=== PATIENT | male | born 1985 | race African-American/Black ===

== ENCOUNTER 2016-05-12 14:08 | Emergency (ER) | payer OTHER ==
[2016-05-12 15:49] LABS: MEAN CORPUSCULAR HGB CONC 34.3 g/dl (32.0-36.5); MEAN CORPUSCULAR VOLUME 87.7 fl (80.0-96.0); RED CELL DISTRIBUTION WIDTH 12.7 % (11.5-14.5); WHITE BLOOD COUNT 5.7 K/mm3 (4.0-10.0)
[2016-05-12 15:54] LABS: AMPHETAMINES LEVEL URINE NEGATIVE (NEGATIVE); BENZODIAZEPINES URINE NEGATIVE (NEGATIVE); COCAINE METABOLITE URINE NEGATIVE (NEGATIVE); METHADONE URINE NEGATIVE (NEGATIVE); OPIATES URINE NEGATIVE (NEGATIVE); TRICYCLIC ANTIDEPRESS URINE NEGATIVE (NEGATIVE)
[2016-05-12 15:55] LABS: CONTROL LINE INT CTR LINE PRESENT
[2016-05-12 16:20] LABS: ALBUMIN 4.1 GM/DL (3.2-5.2); ALBUMIN/GLOBULIN RATIO 1.05 (1.00-1.93); ALKALINE PHOSPHATASE 107 U/L (45-117); ALT/SGPT 56 U/L (12-78); ANION GAP 9 MEQ/L (8-16); AST/SGOT 37 U/L (15-37); BILIRUBIN,DIRECT 0.2 MG/DL (0.0-0.2); BILIRUBIN,TOTAL 0.6 MG/DL (0.2-1.0); BLOOD UREA NITROGEN 12 MG/DL (7-18); CALCIUM LEVEL 9.3 MG/DL (8.5-10.1); CARBON DIOXIDE LEVEL 29 MEQ/L (21-32); CHLORIDE LEVEL 103 MEQ/L (98-107); CREATININE FOR GFR 0.96 MG/DL (0.70-1.30); GLOMERULAR FILTRATION RATE > 60.0 (>60); GLUCOSE, FASTING 76 MG/DL (70-105); POTASSIUM SERUM 3.9 MEQ/L (3.5-5.1); SODIUM LEVEL 141 MEQ/L (136-145)
--- NOTE | 2016-05-12 17:05 | EDDOCDS ---
Physician Documentation [facility], [place] Name: Sussy Rios Age: 31 yrs Sex: Male : 1985 Arrival Date: 05/12/2016 Time: 14:08 Bed [facility] Private MD: Disposition: 05/12/16 16:27 Discharged to Home/Self Care. Impression: Adjustment disorder with depressed mood. - Condition is Stable. - Prescriptions for trazodone 50 mg Oral tablet - take 1 tablet by ORAL route once daily; 3 tablet. - Medication Reconciliation, Local Pharmacy Hours form. - Follow up: Veronika Mora [facility]; When: Call to arrange an appointment; Reason: Recheck today's complaints. - Problem is new. - Symptoms have improved. Historical: - Allergies: no known allergies; - Home Meds: 1. was put on flexeril and 2 other back pain meds yestrerday but hadnt taken any yet - PMHx: none; - PSHx: mandible; - Social history: Smoking status: Patient states was never smoker of tobacco. No barriers to communication noted, The patient speaks fluent Estonian. - Family history: Not pertinent. - : The pt / caregiver states he / she is not on anticoagulants. Home medication list is obtained from the patient. - Exposure Risk Screening:: None identified. Vital Signs: 05/12 14:23 Weight 129.27 kg / 284.99 lbs; Height 6 ft. 2 in. (187.96 cm); mk4 15:08 BP 159 / 96; Pulse 68; Resp 18; Temp 98(T); Pulse Ox 97% on R/A; mk4 17:01 BP 144 / 92; Pulse 74; Resp 18; Temp 98; Pulse Ox 100% on R/A; mk4 14:23 Body Mass Index 36.59 (129.27 kg, 187.96 cm) mk4 MDM: 14:46 Consult PFS/PSA/Motion Picture Photographer ordered. fg 14:46 Consult PFS/PSA/Motion Picture Photographer: Patient's case requires discussion with on-call fg Psychiatrist ordered. 14:46 PSA/PFS to call Nursing Scrap Worker, to enter patient data on [place] Safe Act if patient fg involuntarily admitted or transferred for SI or HI ordered. 14:46 Confirm accurate psychiatric medication list and times of last dosage ordered. fg 14:46 Detain Pt Until Medically/PFS Cleared ordered. fg 14:47 Acetaminophen Level Ordered. EDMS 14:47 Basic Metabolic Profile Ordered. EDMS 14:47 Complete Blood Count Ordered. EDMS 14:47 Drug Eval Toxicology ED Only Ordered. EDMS 14:47 Ethyl Alcohol (ethanol) Ordered. EDMS 14:47 Liver Profile Ordered. EDMS 14:47 Salicylate Level Ordered. EDMS 14:47 Thyroid Stimulating Hormone Ordered. EDMS 15:24 Financial registration complete. jp5 15:36 Consult PFS/PSA/Motion Picture Photographer complete. ml4 15:36 Consult PFS/PSA/Motion Picture Photographer: Patient's case requires discussion with on-call ml4 Psychiatrist complete. 15:36 PSA/PFS to call Nursing Scrap Worker, to enter patient data [place] Safe [place] if patient ml4 involuntarily admitted or transferred for SI or HI complete. 16:09 [facility] Payment Agreement was scanned into [employer] and attached to record. jp5 16:54 [facility] Legal paperwork was scanned into [employer] and attached to record. ml4 Signatures: Dispatcher [employer] EDMS Andreea Hsieh, PSA PSA ml4 Angelina Durant, RN RN Sravani Mayer jp5 Angeline Clark MD MD fg The chart was reviewed and I authenticate all verbal orders and agree with the evaluation and treatment provided.Attachments: 16:09 [facility] Payment Agreement jp5 MTDD
--- NOTE | 2016-05-12 17:06 | EDDOCDS ---
Nurse's Notes [facility] Name: Sussy Rios Age: 31 yrs Sex: Male : 1985 Arrival Date: 05/12/2016 Time: 14:08 Bed [facility] Private MD: Diagnosis: Adjustment disorder with depressed mood Presentation: 05/12 14:21 Presenting complaint: Patient states: has been having suicidal ideations for awhile mk4 now, today went to [facility] who sent him here. Mental Health Triage Level: Level 2: The patient displays active suicidal ideations. Adult Sepsis Screening: The patient does not have new or worsening altered mentation. Patient's respiratory rate is less than 22. Systolic blood pressure is greater than 100. Patient has a qSOFA score of 0- Negative Sepsis Screen. Suicide/Homicide risk assessment- The patient admits to and/or has been reported to be having suicidal ideations. The patient reports that he/she has not been admitted to an inpatient mental health facility in the last 30 days. The patient reports that he/she does not have a recent or current history of substance abuse. The patient reports that he/she has no prior history of suicide attempt and/or organized plan. The patient reports that he/she has not experienced a significant life altering event in the last 30 days. The patient reports that he/she has adequate social support. The patient reports he/she has no significant chronic medical condition(s). 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 Transition of care: patient was not received from another setting of care. 14:21 Acuity: HOLLY Level 3 [facility] 14:21 Method Of Arrival: Ambulance 4 Triage Assessment: 14:23 General: Appears in no apparent distress. Pain: Denies pain. HIV screening NA for this 4 visit Offered previously. Historical: - Allergies: no known allergies; - Home Meds: 1. was put on flexeril and 2 other back pain meds yestrerday but hadnt taken any yet - PMHx: none; - PSHx: mandible; - Social history: Smoking status: Patient states was never smoker of tobacco. No barriers to communication noted, The patient speaks fluent Spanish. - Family history: Not pertinent. - : The pt / caregiver states he / she is not on anticoagulants. Home medication list is obtained from the patient. - Exposure Risk Screening:: None identified. Screenin:04 Screening information is obtained from the patient. Fall risk: No risks identified. mk4 Assistance ADL's: requires no assistance with activities of daily living. Abuse/DV Screen: The patient / caregiver reports he/she is: not in a situation that causes fear, pain or injury. Nutritional screening: No deficits noted. Advance Directives: Currently, there is no health care proxy. There is There is no living will. There is no Power of Visitor Services Information Assistant. Advance directive information has not previously been placed in an [facility] medical record. home support is adequate. Assessment: 14:21 General: Appears in no apparent distress. mk4 16:57 General: Appears in no apparent distress. mk4 16:59 General: Behavior is cooperative. Neurological: Level of Consciousness is awake, alert, 4 Oriented to person, place, time. Respiratory: Airway is patent. 17:01 Derm: Skin is intact, is healthy with good turgor, Skin is pink, warm & dry. 4 Mental Health Eval: 16:40 Mental health consult is initiated at 16:30. 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 [facility] Behavioral Health: The patient is not an established patient of [facility] Behavioral Health. Referral Information: Evaluation referral is generated by [facility] . The patient was referred for evaluation because pt initially presented to [facility] to request medication . Vital Signs: 14:23 Weight 129.27 kg; Height 6 ft. 2 in. (187.96 cm); mk4 15:08 BP 159 / 96; Pulse 68; Resp 18; Temp 98(T); Pulse Ox 97% on R/A; mk4 17:01 BP 144 / 92; Pulse 74; Resp 18; Temp 98; Pulse Ox 100% on R/A; mk4 14:23 Body Mass Index 36.59 (129.27 kg, 187.96 cm) 4 Vitals: 14:23 Log In Time N/A - ambulance arrival. 4 ED Course: 14:11 Patient visited by Emily Chambers. mm15 14:11 Patient moved to Waiting mm15 14:21 Patient moved to [address] 14:22 Triage Initiated 4 14:23 Patient visited by Gene Araujo Security Rupali. pjf 14:26 Pt greeted and oriented to ED. Patient advised of names of staff involved in care, pjf location of call [place], wait times and NPO status. Accompanied by fd ems, Patient has correct armband on for positive identification. Placed in psych safe attire. Bed in low position. Call light in reach. Side rails up X 1. Security observing. Property removed, secured in belongings bag- Placed in locker #1. Door closed. Noise minimized. Visitors limited. Report received from rn - psych. triage level #2, +si, cooperative \T\ this time. The patient / caregiver is instructed regarding the plan of care and ED course. Psych Safety Check: Location: Psych Room. 14:37 Patient visited by Gene Araujo Security Aide. pjf 14:46 Angeline Clark MD is Attending Physician. fg 14:46 Patient visited by Angeline Clark MD. fg 15:33 Patient visited by Ortiz Berkowitz PCA. jlf 15:33 Acetaminophen Level Sent. jlf 15:33 Basic Metabolic Profile Sent. jlf 15:33 Complete Blood Count Sent. jlf 15:33 Drug Eval Toxicology ED Only Sent. jlf 15:33 Ethyl Alcohol (ethanol) Sent. jlf 15:33 Liver Profile Sent. jlf 15:33 Salicylate Level Sent. jlf 15:33 Thyroid Stimulating Hormone Sent. jlf 15:40 Patient visited by Angelina Durant RN. mk4 15:56 Patient visited by Gene Araujo Security Aide. pjf 16:02 Patient visited by Andreea Hsieh PSA. ml4 16:09 [facility] Payment Agreement was scanned into [email or web address] and attached to record. jp5 16:26 Veronika Mora [facility] is Referral Physician. fg 16:27 Patient visited by Gene Araujo Security Aide. pjf 16:54 E Legal paperwork was scanned into [email or web address] and attached to record. ml4 17:04 No IV's were initiated during this patient's visit. No procedures done that require mk4 assistance. Attachments: 16:54 E Legal paperwork ml4 Order Results: Lab Order: Acetaminophen Level; SPEC'M 05/12/16 15:11 Test: ACETAMINOPHEN LEVEL; Value: < 2.0; Range: 10.0-30.0; Abnormal: Below low normal; Units: UG/ML; Status: F Lab Order: Basic Metabolic Profile; SPEC'M 05/12/16 15:11 Test: GLUCOSE, FASTING; Value: 76; Range: 70-105; Units: MG/DL; Status: F Test: BLOOD UREA NITROGEN; Value: 12; Range: 7-18; Units: MG/DL; Status: F Test: CREATININE FOR GFR; Value: 0.96; Range: 0.70-1.30; Units: MG/DL; Status: F Test: GLOMERULAR FILTRATION RATE; Value: > 60.0; Range: >60; Status: F Test: SODIUM LEVEL; Value: 141; Range: 136-145; Units: MEQ/L; Status: F Test: POTASSIUM SERUM; Value: 3.9; Range: 3.5-5.1; Units: MEQ/L; Status: F Test: CHLORIDE LEVEL; Value: 103; Range: 98-107; Units: MEQ/L; Status: F Test: CARBON DIOXIDE LEVEL; Value: 29; Range: 21-32; Units: MEQ/L; Status: F Test: ANION GAP; Value: 9; Range: 8-16; Units: MEQ/L; Status: F Test: CALCIUM LEVEL; Value: 9.3; Range: 8.5-10.1; Units: MG/DL; Status: F Test Note: ; Units are mL/min/1.73 m2 Chronic Kidney Disease Staging per NKF: Stage I & II GFR >=60 Normal to Mildly Decreased Stage III GFR 30-59 Moderately Decreased Stage IV GFR 15-29 Severely Decreased Stage V GFR <15 Very Little GFR Left ESRD GFR <15 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 Lab Order: Complete Blood Count; SPEC'M 05/12/16 15:11 Test: WHITE BLOOD COUNT; Value: 5.7; Range: 4.0-10.0; Units: K/mm3; Status: F Test: RED BLOOD COUNT; Value: 5.03; Range: 4.30-6.10; Units: M/mm3; Status: F Test: HEMOGLOBIN; Value: 15.1; Range: 14.0-18.0; Units: g/dl; Status: F Test: HEMATOCRIT; Value: 44.1; Range: 42.0-52.0; Units: %; Status: F Test: MEAN CORPUSCULAR VOLUME; Value: 87.7; Range: 80.0-96.0; Units: fl; Status: F Test: MEAN CORPUSCULAR HEMOGLOBIN; Value: 30.0; Range: 27.0-33.0; Units: pg; Status: F Test: MEAN CORPUSCULAR HGB CONC; Value: 34.3; Range: 32.0-36.5; Units: g/dl; Status: F Test: RED CELL DISTRIBUTION WIDTH; Value: 12.7; Range: 11.5-14.5; Units: %; Status: F Test: PLATELET COUNT, AUTOMATED; Value: 303; Range: 150-450; Units: k/mm3; Status: F Lab Order: Drug Eval Toxicology ED Only; SPEC'M 05/12/16 15:12 Test: AMPHETAMINES LEVEL URINE; Value: NEGATIVE; Range: NEGATIVE; Status: F Test: BARBITURATES URINE; Value: NEGATIVE; Range: NEGATIVE; Status: F Test: BENZODIAZEPINES URINE; Value: NEGATIVE; Range: NEGATIVE; Status: F Test: CANNABINOIDS URINE; Value: NEGATIVE; Range: NEGATIVE; Status: F Test: COCAINE METABOLITE URINE; Value: NEGATIVE; Range: NEGATIVE; Status: F Test: METHADONE URINE; Value: NEGATIVE; Range: NEGATIVE; Status: F Test: OPIATES URINE; Value: NEGATIVE; Range: NEGATIVE; Status: F Test: TRICYCLIC ANTIDEPRESS URINE; Value: NEGATIVE; Range: NEGATIVE; Status: F Test Note: ; ALL PRESUMPTIVE POSITIVE FINDINGS ARE UNCONFIRMED NORMAL VALUES THRESHOLD IN NG/ML AMPHETAMINES 1000 METHAMPHETAMINES 1000 BARBITURATES 300 BENZODIAZEPINES 300 CANNABINOIDS (THC) 50 COCAINE METABOLITE 300 METHADONE 300 OPIATES 300 PHENCYCLIDINE 25 TRICYCLIC ANTIDEPRESSANTS 1000 RESULTS ARE FOR MEDICAL PURPOSES ONLY. ALL URINE SPECIMENS WILL BE SAVED FOR 3 DAYS. IF CONFIRMATION OF A PRESUMPTIVE POSTIVE SCREEN RESULT IS DESIRED, CALL CHEMISTRY ([phone]) AND REQUEST URINE TO BE SENT TO REFERENCE LAB. FOR A LIST OF CLOSELY RELATED COMPOUNDS PLEASE CALL THE LAB. Lab Order: Ethyl Alcohol (ethanol); SPEC'M 05/12/16 15:11 Test: ETHYL ALCOHOL (ETHANOL); Value: < 0.003; Range: 0.000-0.010; Units: %; Status: F Lab Order: Liver Profile; SPEC'M 05/12/16 15:11 Test: AST/SGOT; Value: 37; Range: 15-37; Units: U/L; Status: F Test: ALT/SGPT; Value: 56; Range: 12-78; Units: U/L; Status: F Test: ALKALINE PHOSPHATASE; Value: 107; Range: 45-117; Units: U/L; Status: F Test: BILIRUBIN,TOTAL; Value: 0.6; Range: 0.2-1.0; Units: MG/DL; Status: F Test: BILIRUBIN,DIRECT; Value: 0.2; Range: 0.0-0.2; Units: MG/DL; Status: F Test: TOTAL PROTEIN; Value: 8.0; Range: 6.4-8.2; Units: GM/DL; Status: F Test: ALBUMIN; Value: 4.1; Range: 3.2-5.2; Units: GM/DL; Status: F Test: ALBUMIN/GLOBULIN RATIO; Value: 1.05; Range: 1.00-1.93; Status: F Lab Order: Salicylate Level; SPEC'M 05/12/16 15:11 Test: SALICYLATE LEVEL; Value: < 1.7; Range: 5.0-30.0; Abnormal: Below low normal; Units: MG/DL; Status: F Lab Order: Thyroid Stimulating Hormone; SPEC'M 05/12/16 15:11 Test: THYROID STIMULATING HORMONE; Value: 2.600; Range: 0.358-3.740; Units: uIU/ML; Status: F Outcome: 16:27 Discharge ordered by Provider. fg 17:03 Discharge Assessment: Patient awake, alert and oriented x 3. No cognitive and/or mk4 functional deficits noted. Patient verbalized understanding of disposition instructions. Patient awake and alert. Discharge Assessment: patient administered narcotics - no. The following High Risk Discharge criteria are identified: None. Condition: good Condition: stable. Discharge instructions given to patient, Instructed on discharge instructions, follow up and referral plans. Prescriptions given X 1, Work note provided to patient. No special radiology studies were completed. 17:04 Patient left the ED. mk4 Signatures: Gene Araujo, Andreea El, PSA PSA ml4 Emily Chambers mm15 Angelina Durant RN RN mk4 Ortiz Berkowitz, [employer] Sravani Michaels jp5 Angeline Clark MD MD fg Corrections: (The following items were deleted from the chart) 16:59 16:40 Referral Information: Evaluation referral is generated by [facility] . The ml4 patient was referred for evaluation because pt initially presented to [facility] to request medication . ml4 17:01 14:21 General: Appears in no apparent distress, mk4 mk4 MTDD
--- NOTE | 2016-05-14 18:06 | EDDOCDS ---
Nurse's Notes [facility] Name: Sussy Rios Age: 31 yrs Sex: Male : 1985 Arrival Date: 05/12/2016 Time: 14:08 Bed [facility] Private MD: Diagnosis: Adjustment disorder with depressed mood Presentation: 05/12 14:21 Presenting complaint: Patient states: has been having suicidal ideations for awhile mk4 now, today went to [facility] who sent him here. Mental Health Triage Level: Level 2: The patient displays active suicidal ideations. Adult Sepsis Screening: The patient does not have new or worsening altered mentation. Patient's respiratory rate is less than 22. Systolic blood pressure is greater than 100. Patient has a qSOFA score of 0- Negative Sepsis Screen. Suicide/Homicide risk assessment- The patient admits to and/or has been reported to be having suicidal ideations. The patient reports that he/she has not been admitted to an inpatient mental health facility in the last 30 days. The patient reports that he/she does not have a recent or current history of substance abuse. The patient reports that he/she has no prior history of suicide attempt and/or organized plan. The patient reports that he/she has not experienced a significant life altering event in the last 30 days. The patient reports that he/she has adequate social support. The patient reports he/she has no significant chronic medical condition(s). 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 Transition of care: patient was not received from another setting of care. 14:21 Acuity: HOLLY Level 3 [facility] 14:21 Method Of Arrival: Ambulance 4 Triage Assessment: 14:23 General: Appears in no apparent distress. Pain: Denies pain. HIV screening NA for this 4 visit Offered previously. Historical: - Allergies: no known allergies; - Home Meds: 1. was put on flexeril and 2 other back pain meds yestrerday but hadnt taken any yet - PMHx: none; - PSHx: mandible; - Social history: Smoking status: Patient states was never smoker of tobacco. No barriers to communication noted, The patient speaks fluent Urdu. - Family history: Not pertinent. - : The pt / caregiver states he / she is not on anticoagulants. Home medication list is obtained from the patient. - Exposure Risk Screening:: None identified. Screenin:04 Screening information is obtained from the patient. Fall risk: No risks identified. mk4 Assistance ADL's: requires no assistance with activities of daily living. Abuse/DV Screen: The patient / caregiver reports he/she is: not in a situation that causes fear, pain or injury. Nutritional screening: No deficits noted. Advance Directives: Currently, there is no health care proxy. There is There is no living will. There is no Power of Mine Captain. Advance directive information has not previously been placed in an [facility] medical record. home support is adequate. Assessment: 14:21 General: Appears in no apparent distress. mk4 16:57 General: Appears in no apparent distress. mk4 16:59 General: Behavior is cooperative. Neurological: Level of Consciousness is awake, alert, mk4 Oriented to person, place, time. Respiratory: Airway is patent. 17:01 Derm: Skin is intact, is healthy with good turgor, Skin is pink, warm & dry. 4 Mental Health Eval: 16:40 Mental health consult is initiated at 16:30. 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 [facility] Behavioral Health: The patient is not an established patient of [facility] Behavioral Health. Referral Information: Evaluation referral is generated by [facility] . The patient was referred for evaluation because pt initially presented to [facility] to request medication . Referral Information: Evaluation referral is generated by [facility] . The patient was referred for evaluation because pt initially presented to [facility] to request medication for sleep, however was sent to [facility] to a medical provider for a prescription, he then was asked about suicidality and pt replied yes with no plan. . 17:27 Subjective: The patients chief complaint is pt states, "I was never suicidal, just ml4 wanted medication for sleep." Pt admits feeling overwhelmed with anxiety due to being at a new duty station. States he moved to [place] with his spouse and 4 children Mar, 2016 and is not familiar with his INGRID or unit. He reports feeling of not being able to "control things" which triggers his anxiety. Pt reports a hx of PTSD, however has never officially diagnosed. Admits having 2 combat related deployments, last tour was to [place] in 2009. Pt continues to deny SI and HI, able to CFS. Spoke to (Stephen, ) who does not have any safety concerns and states he just requires medication for sleep. is also requesting pt to be discharged. . Delusions are denied. Patient's mood is anxious, Hallucinations are denied. 17:44 Mental Health history: post-traumatic stress disorder, Mental Health Admissions: None. ml4 Current Outpatient Mental Health Services: [facility](Name Unknown) . Current living environment is Family / Home Support: adequate support The patient currently lives with his / her children. with his / her spouse, . The patient is . Patient presents to Emergency Department with the following symptoms within the past 2 weeks: anxiety, depressed mood, vague SI no plan, but denies SI currently . poor concentration. 17:54 Substance abuse: Pt denies. Mental status exam: Patients appearance is appropriate, ml4 Patient's behavior is cooperative, Speech is normal. Affect is appropriate. Mood is anxious. Hallucinations are denied. Appetite is normal. Memory is good. Energy level is normal. Content of thought is normal. Thought process is intact. Cognitive level is oriented to person, place, time and situation Patient's insight is good. Judgement is good. Rapport with interviewer is Suicidal Ideation is denied. Homicidal ideation is denied. Disposition: Medically cleared for disposition by Angeline Clark MD Psychiatric Consult is performed by phone with Dr Richard Garcia. [facility] Admission Criteria: Not Applicable. [place] applicable because the patient does not display any suicidal or homicidal ideations and does not pose a risk to self or others. DSM-V Differential Diagnosis: Generalized Anxiety Disorder (F41.1). Narrative: Pt is able to be d/c from [facility]. He adamantly denies SI and HI, able to CFS. Referrals for oupt services was given at beside and directed to follow up with [facility] in the am for further tx. Vital Signs: 14:23 Weight 129.27 kg; Height 6 ft. 2 in. (187.96 cm); mk4 15:08 BP 159 / 96; Pulse 68; Resp 18; Temp 98(T); Pulse Ox 97% on R/A; mk4 17:01 BP 144 / 92; Pulse 74; Resp 18; Temp 98; Pulse Ox 100% on R/A; mk4 14:23 Body Mass Index 36.59 (129.27 kg, 187.96 cm) 4 Vitals: 14:23 Log In Time N/A - ambulance arrival. 4 ED Course: 14:11 Patient visited by Emily Chambers. mm15 14:11 Patient moved to Waiting mm15 14:21 Patient moved to [facility] mk4 14:22 Triage Initiated mk4 14:23 Patient visited by Gene Araujo Security Aide. pjf 14:26 Pt greeted and oriented to ED. Patient advised of names of staff involved in care, pjf location of call [place], wait times and NPO status. Accompanied by fd ems, Patient has correct armband on for positive identification. Placed in psych safe attire. Bed in low position. Call light in reach. Side rails up X 1. Security observing. Property removed, secured in belongings bag- Placed in locker #1. Door closed. Noise minimized. Visitors limited. Report received from rn - psych. triage level #2, +si, cooperative \\T\\ this time. The patient / caregiver is instructed regarding the plan of care and ED course. Psych Safety Check: Location: Psych Room. 14:37 Patient visited by Gene Araujo Security Aide. pjf 14:46 Angeline Clark MD is Attending Physician. fg 14:46 Patient visited by Angeline Clark MD. fg 15:33 Patient visited by Ortiz Berkowitz PCA. jlf 15:33 Acetaminophen Level Sent. jlf 15:33 Basic Metabolic Profile Sent. jlf 15:33 Complete Blood Count Sent. jlf 15:33 Drug Eval Toxicology ED Only Sent. jlf 15:33 Ethyl Alcohol (ethanol) Sent. jlf 15:33 Liver Profile Sent. jlf 15:33 Salicylate Level Sent. jlf 15:33 Thyroid Stimulating Hormone Sent. jlf 15:40 Patient visited by Angelina Durant RN. mk4 15:56 Patient visited by Gene Araujo Security Aide. pjf 16:02 Patient visited by Andreea Hsieh PSA. ml4 16:09 [facility] Payment Agreement was scanned into [employer] and attached to record. jp5 16:26 Veronika Mora [facility] is Referral Physician. fg 16:27 Patient visited by Gene Araujo Security Aide. pjf 16:54 [facility] Legal paperwork was scanned into [employer] and attached to record. ml4 17:04 No IV's were initiated during this patient's visit. No procedures done that require mk4 assistance. 17:17 Patient name changed from Sussy\\S\\\\S\\Estridge\\S\\ to Sussy\\S\\ \\S\\Estridge. EDMS 05/13 07:14 T-Sheet-- Draft Copy was scanned into [employer] and attached to record. gb 11:50 PCR was scanned into [employer] and attached to record. gb Attachments: 16:54 [facility] Legal paperwork ml4 Order Results: Lab Order: Acetaminophen Level; SPEC'M 05/12/16 15:11 Test: ACETAMINOPHEN LEVEL; Value: < 2.0; Range: 10.0-30.0; Abnormal: Below low normal; Units: UG/ML; Status: F Lab Order: Basic Metabolic Profile; SPEC'M 05/12/16 15:11 Test: GLUCOSE, FASTING; Value: 76; Range: 70-105; Units: MG/DL; Status: F Test: BLOOD UREA NITROGEN; Value: 12; Range: 7-18; Units: MG/DL; Status: F Test: CREATININE FOR GFR; Value: 0.96; Range: 0.70-1.30; Units: MG/DL; Status: F Test: GLOMERULAR FILTRATION RATE; Value: > 60.0; Range: >60; Status: F Test: SODIUM LEVEL; Value: 141; Range: 136-145; Units: MEQ/L; Status: F Test: POTASSIUM SERUM; Value: 3.9; Range: 3.5-5.1; Units: MEQ/L; Status: F Test: CHLORIDE LEVEL; Value: 103; Range: 98-107; Units: MEQ/L; Status: F Test: CARBON DIOXIDE LEVEL; Value: 29; Range: 21-32; Units: MEQ/L; Status: F Test: ANION GAP; Value: 9; Range: 8-16; Units: MEQ/L; Status: F Test: CALCIUM LEVEL; Value: 9.3; Range: 8.5-10.1; Units: MG/DL; Status: F Test Note: ; Units are mL/min/1.73 m2 Chronic Kidney Disease Staging per NKF: Stage I & II GFR >=60 Normal to Mildly Decreased Stage III GFR 30-59 Moderately Decreased Stage IV GFR 15-29 Severely Decreased Stage V GFR <15 Very Little GFR Left ESRD GFR <15 on AGRICULTURE LABORER Lab Order: Complete Blood Count; SPEC'M 05/12/16 15:11 Test: WHITE BLOOD COUNT; Value: 5.7; Range: 4.0-10.0; Units: K/mm3; Status: F Test: RED BLOOD COUNT; Value: 5.03; Range: 4.30-6.10; Units: M/mm3; Status: F Test: HEMOGLOBIN; Value: 15.1; Range: 14.0-18.0; Units: g/dl; Status: F Test: HEMATOCRIT; Value: 44.1; Range: 42.0-52.0; Units: %; Status: F Test: MEAN CORPUSCULAR VOLUME; Value: 87.7; Range: 80.0-96.0; Units: fl; Status: F Test: MEAN CORPUSCULAR HEMOGLOBIN; Value: 30.0; Range: 27.0-33.0; Units: pg; Status: F Test: MEAN CORPUSCULAR HGB CONC; Value: 34.3; Range: 32.0-36.5; Units: g/dl; Status: F Test: RED CELL DISTRIBUTION WIDTH; Value: 12.7; Range: 11.5-14.5; Units: %; Status: F Test: PLATELET COUNT, AUTOMATED; Value: 303; Range: 150-450; Units: k/mm3; Status: F Lab Order: Drug Eval Toxicology ED Only; SPEC'M 05/12/16 15:12 Test: AMPHETAMINES LEVEL URINE; Value: NEGATIVE; Range: NEGATIVE; Status: F Test: BARBITURATES URINE; Value: NEGATIVE; Range: NEGATIVE; Status: F Test: BENZODIAZEPINES URINE; Value: NEGATIVE; Range: NEGATIVE; Status: F Test: CANNABINOIDS URINE; Value: NEGATIVE; Range: NEGATIVE; Status: F Test: COCAINE METABOLITE URINE; Value: NEGATIVE; Range: NEGATIVE; Status: F Test: METHADONE URINE; Value: NEGATIVE; Range: NEGATIVE; Status: F Test: OPIATES URINE; Value: NEGATIVE; Range: NEGATIVE; Status: F Test: TRICYCLIC ANTIDEPRESS URINE; Value: NEGATIVE; Range: NEGATIVE; Status: F Test Note: ; ALL PRESUMPTIVE POSITIVE FINDINGS ARE UNCONFIRMED NORMAL VALUES THRESHOLD IN NG/ML AMPHETAMINES 1000 METHAMPHETAMINES 1000 BARBITURATES 300 BENZODIAZEPINES 300 CANNABINOIDS (THC) 50 COCAINE METABOLITE 300 METHADONE 300 OPIATES 300 PHENCYCLIDINE 25 TRICYCLIC ANTIDEPRESSANTS 1000 RESULTS ARE FOR MEDICAL PURPOSES ONLY. ALL URINE SPECIMENS WILL BE SAVED FOR 3 DAYS. IF CONFIRMATION OF A PRESUMPTIVE POSTIVE SCREEN RESULT IS DESIRED, CALL CHEMISTRY ([phone]) AND REQUEST URINE TO BE SENT TO REFERENCE LAB. FOR A LIST OF CLOSELY RELATED COMPOUNDS PLEASE CALL THE LAB. Lab Order: Ethyl Alcohol (ethanol); SPEC'M 05/12/16 15:11 Test: ETHYL ALCOHOL (ETHANOL); Value: < 0.003; Range: 0.000-0.010; Units: %; Status: F Lab Order: Liver Profile; SPEC'M 05/12/16 15:11 Test: AST/SGOT; Value: 37; Range: 15-37; Units: U/L; Status: F Test: ALT/SGPT; Value: 56; Range: 12-78; Units: U/L; Status: F Test: ALKALINE PHOSPHATASE; Value: 107; Range: 45-117; Units: U/L; Status: F Test: BILIRUBIN,TOTAL; Value: 0.6; Range: 0.2-1.0; Units: MG/DL; Status: F Test: BILIRUBIN,DIRECT; Value: 0.2; Range: 0.0-0.2; Units: MG/DL; Status: F Test: TOTAL PROTEIN; Value: 8.0; Range: 6.4-8.2; Units: GM/DL; Status: F Test: ALBUMIN; Value: 4.1; Range: 3.2-5.2; Units: GM/DL; Status: F Test: ALBUMIN/GLOBULIN RATIO; Value: 1.05; Range: 1.00-1.93; Status: F Lab Order: Salicylate Level; SPEC'M 05/12/16 15:11 Test: SALICYLATE LEVEL; Value: < 1.7; Range: 5.0-30.0; Abnormal: Below low normal; Units: MG/DL; Status: F Lab Order: Thyroid Stimulating Hormone; SPEC'M 05/12/16 15:11 Test: THYROID STIMULATING HORMONE; Value: 2.600; Range: 0.358-3.740; Units: uIU/ML; Status: F Outcome: 01/05 16:27 Discharge ordered by Provider. fg 17:03 Discharge Assessment: Patient awake, alert and oriented x 3. No cognitive and/or mk4 functional deficits noted. Patient verbalized understanding of disposition instructions. Patient awake and alert. Discharge Assessment: patient administered narcotics - no. The following High Risk Discharge criteria are identified: None. Condition: good Condition: stable. Discharge instructions given to patient, Instructed on discharge instructions, follow up and referral plans. Prescriptions given X 1, Work note provided to patient. No special radiology studies were completed. 17:04 Patient left the ED. 4 Signatures: Dispatcher [employer] EDMS Goldie Roy, Reg Reg gb Gayle, Gene, Security Aide Securpjf Andreea Hsieh, PSA PSA ml4 Emily Chambers mm15 Angelina Durant, RN RN mk4 Ortiz Berkowitz, KYM CONTINUING EDUCATION DIRECTOR Sravani Michaels jp5 Angeline Clark MD MD fg Corrections: (The following items were deleted from the chart) 16:59 16:40 Referral Information: Evaluation referral is generated by [facility] . The ml4 patient was referred for evaluation because pt initially presented to [facility] to request medication . ml4 17:01 14:21 General: Appears in no apparent distress, 4 [facility] 17:53 17:27 Subjective: The patients chief complaint is pt states, "I was never suicidal, ml4 just wanted medication for sleep." Pt admits feeling overwhelmed with anxiety due to being at a new duty station. States he moved to [place] with his spouse and 4 children Mar, 2016 and is not familiar with his [employer]GR[employer] or unit. He reports feeling of not being able to "control things" which triggers his anxiety. Pt reports a hx of PTSD, however has never officially diagnosed.. ml4 17:57 17:44 Patient presents to Emergency Department with the following symptoms within the ml4 past 2 weeks: anxiety, depressed mood, ml4 Chart Complete MTDD
--- NOTE | 2016-05-14 18:06 | EDDOCDS ---
Physician Documentation [facility] Name: Sussy Rios Age: 31 yrs Sex: Male : 1985 Arrival Date: 05/12/2016 Time: 14:08 Bed [facility] Private MD: Disposition: 05/12/16 16:27 Discharged to Home/Self Care. Impression: Adjustment disorder with depressed mood. - Condition is Stable. - Prescriptions for trazodone 50 mg Oral tablet - take 1 tablet by ORAL route once daily; 3 tablet. - Medication Reconciliation, Local Pharmacy Hours form. - Follow up: Veronika Mora [facility]; When: Call to arrange an appointment; Reason: Recheck today's complaints. - Problem is new. - Symptoms have improved. Historical: - Allergies: no known allergies; - Home Meds: 1. was put on flexeril and 2 other back pain meds yestrerday but hadnt taken any yet - PMHx: none; - PSHx: mandible; - Social history: Smoking status: Patient states was never smoker of tobacco. No barriers to communication noted, The patient speaks fluent Malian. - Family history: Not pertinent. - : The pt / caregiver states he / she is not on anticoagulants. Home medication list is obtained from the patient. - Exposure Risk Screening:: None identified. Vital Signs: 05/12 14:23 Weight 129.27 kg / 284.99 lbs; Height 6 ft. 2 in. (187.96 cm); mk4 15:08 BP 159 / 96; Pulse 68; Resp 18; Temp 98(T); Pulse Ox 97% on R/A; mk4 17:01 BP 144 / 92; Pulse 74; Resp 18; Temp 98; Pulse Ox 100% on R/A; mk4 14:23 Body Mass Index 36.59 (129.27 kg, 187.96 cm) mk4 MDM: 14:46 Consult PFS/PSA/Interventional Radiologist ordered. fg 14:46 Consult PFS/PSA/Interventional Radiologist: Patient's case requires discussion with on-call fg Psychiatrist ordered. 14:46 PSA/PFS to call Nursing Heavy Equipment Operator/Paver, to enter patient data on [place] Safe [place] if patient fg involuntarily admitted or transferred for SI or HI ordered. 14:46 Confirm accurate psychiatric medication list and times of last dosage ordered. fg 14:46 Detain Pt Until Medically/PFS Cleared ordered. fg 14:47 Acetaminophen Level Ordered. EDMS 14:47 Basic Metabolic Profile Ordered. EDMS 14:47 Complete Blood Count Ordered. EDMS 14:47 Drug Eval Toxicology ED Only Ordered. EDMS 14:47 Ethyl Alcohol (ethanol) Ordered. EDMS 14:47 Liver Profile Ordered. EDMS 14:47 Salicylate Level Ordered. EDMS 14:47 Thyroid Stimulating Hormone Ordered. EDMS 15:24 Financial registration complete. jp5 15:36 Consult PFS/PSA/Interventional Radiologist complete. ml4 15:36 Consult PFS/PSA/Interventional Radiologist: Patient's case requires discussion with on-call ml4 Psychiatrist complete. 15:36 PSA/PFS to call Nursing Heavy Equipment Operator/Paver, to enter patient data [place] Safe [place] if patient ml4 involuntarily admitted or transferred for SI or HI complete. 16:09 [facility] Payment Agreement was scanned into [employer] and attached to record. jp5 16:54 [facility] Legal paperwork was scanned into [employer] and attached to record. [facility] 05/13 07:14 T-Sheet-- Draft Copy was scanned into [employer] and attached to record. 11:50 PCR was scanned into [employer] and attached to record. gb Signatures: Dispatcher [employer] EDMS Goldie Roy, Reg Reg gb Andreea Hsieh, PSA PSA ml4 Angelina Durant, RN RN 4 Sravani Gonzalez jp5 Angeline Clark MD MD fg The chart was reviewed and I authenticate all verbal orders and agree with the evaluation and treatment provided.Attachments: 05/12 16:09 [facility] Payment Agreement 5 05/13 07:14 T-Sheet-- Draft Copy gb Chart Complete MTDD
--- NOTE | 2016-05-14 18:06 | EDDOCDS ---
Physician Documentation [facility] Name: Sussy Rios Age: 31 yrs Sex: Male : 1985 Arrival Date: 05/12/2016 Time: 14:08 Bed [facility] Private MD: Disposition: 05/12/16 16:27 Discharged to Home/Self Care. Impression: Adjustment disorder with depressed mood. - Condition is Stable. - Prescriptions for trazodone 50 mg Oral tablet - take 1 tablet by ORAL route once daily; 3 tablet. - Medication Reconciliation, Local Pharmacy Hours form. - Follow up: Veronika Mora [facility]; When: Call to arrange an appointment; Reason: Recheck today's complaints. - Problem is new. - Symptoms have improved. Historical: - Allergies: no known allergies; - Home Meds: 1. was put on flexeril and 2 other back pain meds yestrerday but hadnt taken any yet - PMHx: none; - PSHx: mandible; - Social history: Smoking status: Patient states was never smoker of tobacco. No barriers to communication noted, The patient speaks fluent Faroese. - Family history: Not pertinent. - : The pt / caregiver states he / she is not on anticoagulants. Home medication list is obtained from the patient. - Exposure Risk Screening:: None identified. Vital Signs: 05/12 14:23 Weight 129.27 kg / 284.99 lbs; Height 6 ft. 2 in. (187.96 cm); mk4 15:08 BP 159 / 96; Pulse 68; Resp 18; Temp 98(T); Pulse Ox 97% on R/A; mk4 17:01 BP 144 / 92; Pulse 74; Resp 18; Temp 98; Pulse Ox 100% on R/A; mk4 14:23 Body Mass Index 36.59 (129.27 kg, 187.96 cm) mk4 MDM: 14:46 Consult PFS/PSA/[employer] ordered. fg 14:46 Consult PFS/PSA/[employer]: Patient's case requires discussion with on-call fg Psychiatrist ordered. 14:46 PSA/PFS to call Nursing Pipe Stripper, to enter [place] data [place] if patient fg involuntarily admitted or transferred for SI or HI ordered. 14:46 Confirm accurate psychiatric medication list and times of last dosage ordered. fg 14:46 Detain Pt Until Medically/PFS Cleared ordered. fg 14:47 Acetaminophen Level Ordered. EDMS 14:47 Basic Metabolic Profile Ordered. EDMS 14:47 Complete Blood Count Ordered. EDMS 14:47 Drug Eval Toxicology ED Only Ordered. EDMS 14:47 Ethyl Alcohol (ethanol) Ordered. EDMS 14:47 Liver Profile Ordered. EDMS 14:47 Salicylate Level Ordered. EDMS 14:47 Thyroid Stimulating Hormone Ordered. EDMS 15:24 Financial registration complete. jp5 15:36 Consult PFS/PSA/[employer] complete. ml4 15:36 Consult PFS/PSA/[employer]: Patient's case requires discussion with on-call ml4 Psychiatrist complete. 15:36 PSA/PFS to call Nursing Pipe Stripper, to enter [place] data [place] if patient ml4 involuntarily admitted or transferred for SI or HI complete. 16:09 [facility] Payment Agreement was scanned into [employer] and attached to record. jp5 16:54 [facility] Legal paperwork was scanned into [employer] and attached to record. [facility] 05/13 07:14 T-Sheet-- Draft Copy was scanned into [employer] and attached to record. 11:50 PCR was scanned into [employer] and attached to record. gb Signatures: Dispatcher [employer] EDMS Goldie Roy, Reg Reg gb Andreea Hsieh, PSA PSA ml4 Angelina Durant, RN RN 4 Sravani Gonzalez jp5 Angeline Clark MD MD fg The chart was reviewed and I authenticate all verbal orders and agree with the evaluation and treatment provided.Attachments: 05/12 16:09 [facility] Payment Agreement 5 05/13 07:14 T-Sheet-- Draft Copy gb Chart Complete MTDD
== END 2016-05-12 17:04 | disposition home or self-care (01) ==
LOC: M ED 14:08
DX: F32.9 Major depressive disorder, single episode, unspecified (principal)
CPT/HCPCS: 36415; 80048; 80076; 80306; 84443; 85027; 99284; G0480

== ENCOUNTER → 2016-07-27 | Outpatient (CLI) | payer OTHER ==
--- NOTE | 2016-07-29 07:37 | SLEEPCENT ---
DATE OF PROCEDURE: 07/27/2016 ORDERED BY: TROY Sotelo Nocturnal polysomnography was performed for evaluation of sleep apnea syndrome symptoms in this patient with a history of excessive somnolence, morning headaches and nonrestorative sleep. 7 hours and 14 minutes of data were reviewed. There were 292 minutes of sleep identified. Sleep latency was prolonged at 104 minutes. Rapid eye movement (REM) latency was normal at 65 minutes. Sleep architecture showed fragmentation. Progression was fair. There were 4 REM periods appreciated. Overall sleep efficiency was 69%. Electrocardiogram (EKG) showed a sinus rhythm with an average heart rate of 50 beats per minute. Electroencephalogram (EEG) showed normal waveforms for awake and sleep. There were 59 respiratory events identified of 10 seconds in duration or greater for an apnea hypopnea index of 12.1. The events were primarily obstructive, not exclusive to sleep stage nor body posture. Arousals from respiratory events occurred 11.1 times per hour. Oxygen desaturations were seen into the low 80s. Some limb activity was appreciated. There was 1 train of events but limb movement arousal index was only 3.9. IMPRESSION: Obstructive sleep apnea syndrome (G47.33). Apnea hypopnea index 12.1. RECOMMENDATION: The patient should be encouraged to return to the sleep disorder center for pressure therapy. In the interim, alcohol and sedative avoidance should be practiced and caution exercised during the operation of motor vehicles.
== END ==
LOC: M SLEEP 19:42
PROVIDERS: ATTEND Nurse Practitioner Adult Health
DX: G47.33 Obstructive sleep apnea (adult) (pediatric) (principal)

== ENCOUNTER → 2016-08-17 | Outpatient (CLI) | payer OTHER ==
--- NOTE | 2016-08-19 09:23 | SLEEPCENT ---
DATE OF PROCEDURE: 08/17/2016 ORDERED BY: Merline Cabrera Nocturnal polysomnography was performed for the titration of pressure therapy in this patient with obstructive sleep apnea syndrome and apnea-hypopnea index of 12.1. For testing, the patient was fit with a [employer]Med Quattro full face mask of large size and 5 cm of water pressure were applied to the circuit and the lights were extinguished. 7 hours and 14 minutes of data were reviewed. There were 380 minutes of sleep identified. Sleep latency was mildly prolonged at 24 minutes. Rapid eye movement (REM) latency was short at 39 minutes. Sleep architecture was good. Overall sleep efficiency was 88.6%. Electrocardiogram (EKG) showed a sinus rhythm with an average heart rate of 50 beats per minute. Electroencephalogram (EEG) showed normal waveforms for awake and sleep. Respiratory events were fully palliated with CPAP at a pressure of +7. CPAP tolerance was good. Some limb activity was appreciated, but there were few trains of events. Limb movement arousal index was 5.7. IMPRESSION: Obstructive sleep apnea syndrome (G47.33). RECOMMENDATION: Nightly use of pressure therapy at 7 cm of water.
== END ==
LOC: M SLEEP 19:50
PROVIDERS: ATTEND Nurse Practitioner Adult Health
DX: G47.33 Obstructive sleep apnea (adult) (pediatric) (principal)

== ENCOUNTER → 2017-02-09 | Outpatient (CLI) | payer OTHER ==
--- NOTE | 2017-02-09 09:27 | REP ---
Urinary tract sonography with renal artery Doppler flow assessment: History: Primary hypertension. Morphologic findings: Scanning through the region of the urinary bladder shows no abnormality. Scan quality is inhibited somewhat by patient body habitus. Renal cortical echogenicity pattern is normal and renal contours are smooth bilaterally. There is no evidence of hydronephrosis, mass or cyst on either side. The right kidney measures 10.8 x 5.4 x 4.7 cm. Left renal dimensions are 12.8 x 5.5 x 7.7 cm. Renal artery Doppler flow assessment: Peak systolic flow velocity in the abdominal aorta at the level of the main renal arteries is normal at 104 cm/sec. Peak systolic flow velocity in the left main renal artery is 128 cm/sec and that in the right main renal artery is 96 cm/sec. These values are normal as well. Renal to aortic flow velocity ratios are therefore normal at 0.9 on the right and 1.2 on the left. Resistive indices and acceleration times are measured in the intralobar arteries of the upper, mid and lower poles of each kidney. These values are normal bilaterally. Impression: There is no evidence of renal artery stenosis on Doppler. No significant morphologic abnormality is seen. Signed by Bladimir Trujillo MD 02/09/2017 11:23 A
== END ==
LOC: M RAD 07:43
PROVIDERS: ATTEND Physician Assistant
DX: I10 Essential (primary) hypertension (principal)